=== PATIENT | female | born 1960 | race African-American/Black ===

== ENCOUNTER 2018-05-30 11:45 | Emergency (ER) | payer SELFPAY ==
[~2018-05-30] VITALS: Ht 160 cm; Wt 75.0 kg
[2018-05-30 12:28] LABS: BASOPHILS % 0.6 % (0.0-2.0); EOSINOPHILS % 1.1 % (0.0-5.0); HEMATOCRIT. 36.2 % (36.0-48.0); HEMOGLOBIN. 11.8 g/dL (12.0-16.0); LYMPHOCYTES % 17.9 % (20.0-50.0); MONOCYTES % 7.4 % (2.0-8.0); PLATELET 316 x1000/uL (130-400); RED BLOOD CELL COUNT 4.53 mill/uL (4.2-5.4); RED CELL DISTRIBUTION WIDTH 20.8 % (11.6-14.6)
[2018-05-30 12:33] LABS: INR 1.1; PROTHROMBIN TIME 11.3 sec (9.4-11.6)
[2018-05-30 12:34] LABS: CHLORIDE 108 mEq/L (98-107)
[2018-05-30] MEDS ORDERED: CLONIDINE 0.2MG TABLET PO ONE (12:45)
[2018-05-30 16:09] VITALS: BP 101/75
== END 2018-05-30 16:11 | disposition home or self-care (01) ==
LOC: ER 13:45
DX: I16.0 Hypertensive urgency (principal); I10 Essential (primary) hypertension
CPT/HCPCS: 36415; 71045; 80053; 85025; 85610; 93005; 99285; Z7610

== ENCOUNTER 2025-07-12 16:20 | Emergency (ER) | payer BC ==
[~2025-07-12] VITALS: Ht 160 cm; Wt 54.0 kg
[2025-07-12 16:33] VITALS: O2SAT 99
[2025-07-12] MEDS: KETOROLAC 15MG/ML VIAL IM ONE (17:50)
[2025-07-12] MEDS: BACITRACIN ZINC OINT UDPKT TOP ONE ×2 (17:50→21:09)
[2025-07-12] MEDS: ACETAMINOPHEN 325MG TABLET PO ONE (17:50)
[2025-07-12 18:18] LABS: BASOPHILS % 0.4 % (0.0-2.0); EOSINOPHILS % 3.6 % (0.0-5.0); HEMATOCRIT. 38.8 % (36.0-48.0); HEMOGLOBIN. 13.0 g/dL (12.0-16.0); LYMPHOCYTES % 14.4 % (20.0-50.0); MEAN PLATELET VOLUME 8.4 fl (7.4-10.4); MONOCYTES % 8.8 % (2.0-8.0); NEUTROPHILS % 72.8 % (40.0-76.0); PLATELET 217 x1000/uL (130-400); RED BLOOD CELL COUNT 3.98 mill/uL (4.2-5.4); RED CELL DISTRIBUTION WIDTH 13.8 % (11.6-14.6)
[2025-07-12 18:32] LABS: CREATININE 0.7 mg/dL (0.6-1.0)
[2025-07-12 18:34] LABS: UREA NITROGEN BLOOD 5 mg/dL (9-23)
[2025-07-12] MEDS: MORPHINE SULFATE 4 MG/ML INJ (FOR IV/IM USE) IV ONE ×2 (18:52→20:52)
[2025-07-12] MEDS ORDERED: HYDR-4001 MT (20:16)
[2025-07-12] MEDS ORDERED: BO1 TP (20:16)
[2025-07-12] MEDS ORDERED: IBUP-2029 MT (20:16)
[2025-07-12 21:33] VITALS: BP 142/83; PULSE 65; RESP 18; TEMP 36.7; O2SAT 99
== END 2025-07-12 21:36 | disposition home or self-care (01) ==
LOC: ER 16:20
DX: T25.222A Burn of second degree of left foot, initial encounter (principal); Z98.51 Tubal ligation status; I10 Essential (primary) hypertension; X98.2XXA Assault by hot fluids, initial encounter; Y93.G3 Activity, cooking and baking; Y92.000 Kitchen of unspecified non-institutional (private) residence as the place of occurrence of the external cause; Y99.8 Other external cause status
CPT/HCPCS: 99285; 96374; 96375; 80048; 85025; 36415; 73620; 16020; 96372; J1885; J2270

== ENCOUNTER 2025-08-04 09:02 | Emergency (ER) | payer BC ==
[~2025-08-04] VITALS: Ht 160 cm; Wt 58.0 kg
[~2025-08-04 09:02] MED LIST: BO1 TP; HYDR-4001 MT; IBUP-1455 MT
[2025-08-04 09:15] VITALS: O2SAT 99
[2025-08-04 09:31] LABS: HEMATOCRIT. 41.4 % (36.0-48.0); HEMOGLOBIN. 14.1 g/dL (12.0-16.0); MEAN PLATELET VOLUME 7.3 fl (7.4-10.4); PLATELET 491 x1000/uL (130-400); RED BLOOD CELL COUNT 4.39 mill/uL (4.2-5.4); RED CELL DISTRIBUTION WIDTH 13.4 % (11.6-14.6)
[2025-08-04] MEDS: ONDANSETRON HCL 4MG/2ML INJ IV ONE (09:44)
[2025-08-04] MEDS: MORPHINE SULFATE 4 MG/ML INJ (FOR IV/IM USE) IV ONE (09:44)
[2025-08-04] MEDS: SODIUM CHLORIDE 0.9% 1,000 ML IV ONE (09:45)
[2025-08-04 09:52] LABS: CREATININE 0.8 mg/dL (0.6-1.0)
[2025-08-04 09:53] LABS: ETHANOL BLOOD < 10 mg/dL (<10); TROPONIN I HIGH SENSITIVITY < 4 ng/L (3.0-34); UREA NITROGEN BLOOD 9 mg/dL (9-23)
[2025-08-04 09:54] LABS: ASPARTATE AMINOTRANSFERASE 13 IU/L (<34); BILIRUBIN DIRECT 0.2 mg/dL (<=3.0)
[2025-08-04 09:55] LABS: BILIRUBIN TOTAL 0.6 mg/dL (0.1-1.0); PROTEIN TOTAL 8.1 g/dL (6.0-8.3)
[2025-08-04 11:52] LABS: BAND% 3.0 % (1.0-6.0); LYMPHOCYTES % MANUAL 2.0 % (20.0-60.0); MONOCYTES % MANUAL 3.0 % (2.0-8.0); NEUTROPHILS % MANUAL 92.0 % (45.0-75.0)
[2025-08-04 11:53] LABS: PLATELET ESTIMATE INCREAS
[2025-08-04 12:31] LABS: CLARITY URINE CLEAR (CLEAR); COLOR URINE YELLOW (YELLOW); GLUCOSE URINE NEGATIVE (NEGATIVE); KETONES URINE 2+ (NEGATIVE); LEUKOCYTE ESTERASE URINE 2+ (NEGATIVE); NITRITE URINE NEGATIVE (NEGATIVE); OCCULT BLOOD URINE NEGATIVE (NEGATIVE); PH URINE 6.0 (4.5-8.0); PROTEIN URINE 1+ (NEGATIVE); SPECIFIC GRAVITY URINE 1.016 (1.005-1.030); UROBILINOGEN URINE 1.0 E.U./dL (0.2-1.0)
[2025-08-04] MEDS: POTASSIUM CHLORIDE 20MEQ/PACKET PO NR (12:41)
[2025-08-04 12:43] LABS: MUCUS URINE 2+ /lpf (< = 2+)
[2025-08-04 12:45] LABS: SQUAMOUS EPITHELIAL CELL URINE 2+ /lpf (RARE/1+)
[2025-08-04 12:46] LABS: RBC URINE 0-2 /hpf (0-2)
[2025-08-04 12:47] LABS: BACTERIA URINE 2+
[2025-08-04 12:49] LABS: *AMPHETAMINES SCREEN URINE NEGATIVE (NEGATIVE)
[2025-08-04 12:50] LABS: *BARBITURATES SCREEN URINE NEGATIVE (NEGATIVE); *BENZODIAZEPINES SCREEN URINE NEGATIVE (NEGATIVE); *COCAINE SCREEN URINE NEGATIVE (NEGATIVE); CANNABINOID URINE SCREEN PRESUMPTIVE POSITIVE (NEGATIVE); ECSTASY MDMA SCREEN URINE NEGATIVE (NEGATIVE); METHADONE URINE SCREEN NEGATIVE (NEGATIVE); OPIATES URINE SCREEN PRESUMPTIVE POSITIVE (NEGATIVE); PHENCYCLIDINE URINE SCREEN NEGATIVE (NEGATIVE)
[2025-08-04] MEDS ORDERED: SULF1TAB48 MT (12:52)
[2025-08-04] MEDS: CEFTRIAXONE 1GM/50ML 50 ML IV ONE (12:59)
[2025-08-04 13:13] VITALS: BP 137/88; PULSE 80; RESP 16; TEMP 36.9; O2SAT 100
[2025-08-04] MEDS: SULFAMETHOXAZOLE/TRIMETHOPRIM 800/160MG TABLET PO NR (13:13)
== END 2025-08-04 13:37 | disposition home or self-care (01) ==
LOC: ER 09:02
DX: R11.2 Nausea with vomiting, unspecified (principal); R10.9 Unspecified abdominal pain; I10 Essential (primary) hypertension; Z98.51 Tubal ligation status; Z79.899 Other long term (current) drug therapy
CPT/HCPCS: 80076; 80305; 80048; 81003; 80320; 83690; 85025; 84484; 36415; 74176; 96361; 96365; 96375; 99285; J0696; J2405; J2270; J7030; G0480